=== PATIENT | male | born 1975 | race Caucasian/White ===

== ENCOUNTER 2021-06-18 10:44 | Emergency (ER) | payer SELFPAY ==
[~2021-06-18] VITALS: Ht 182 cm; Wt 75.0 kg
[2021-06-18] MEDS ORDERED: MILK OF MAGNESIA 400 MG/5 ML 30 ML UDC PO STA (11:28)
[2021-06-18] MEDS ORDERED: BISACODYL 10 MG SUPP (DULCOLAX) PR STA (11:28)
--- NOTE | 2021-06-18 11:50 | ED GI ---
General Chief Complaint: Abdominal/GI Problems Stated Complaint: CONSTIPATION Nursing Triage Note: AMB TO ROOM WITH C/O NO BM FOR 14 DAYS HAS HAD CRMPIMG WITH. TOOK LAXTIVE LAST NIGHT. WITH NO RESULTS. (PUJA MINOR) History of Present Illness Date Seen by Provider: Jun 18, 2021 Time Seen by Provider: 11:05 Initial Comments 45-year-old male presents for constipation. He is uncertain when the last time he had a full bowel movement is, he is guessing about 14 days. He does report taking 3 laxatives orally yesterday and having liquid stool approximately 2 hours later. He has no history of abdominal problems, he has had an appendectomy no other abdominal surgeries. He denies n/v/d and is passing flatus. He has been eating and drinking. No PCP. Denies abdominal pain. Timing/Duration: 1 Week Associated Symptoms: Denies Symptoms (PUJA MINOR) Allergies and Home Medications Allergies Coded Allergies: No Known Drug Allergies (Unverified , 06/18/21) Patient Home Medication List Home Medication List Reviewed: Yes (PUJA MINOR) Review of Systems Review of Systems Constitutional: no symptoms reported, see HPI Gastrointestinal: See HPI; Denies Abdominal Pain; Constipated; Denies Diarrhea, Denies Nausea, Denies Poor Appetite, Denies Poor Fluid Intake, Denies Rectal Bleeding, Denies Vomiting (PUJA MINOR) All Other Systems Reviewed Negative Unless Noted: Yes (PUJA MINOR) Past Cblxtth-Avjgmi-Zgspvx Hx Patient Social History Tobacco Use?: Yes Substance use?: No Alcohol Use?: Yes Alcohol Frequency: Rarely (PUJA MINOR) Family Medical History Reviewed Nursing Family Hx (PUJA MINOR) Physical Exam Vital Signs Vital Signs - First Documented 06/18/21 10:50 Temp 36.9 Pulse 97 Resp 18 B/P (MAP) 128/92 (104) Pulse Ox 98 O2 Delivery Room Air (JAZLYN OJEDA MD) Vital Signs Capillary Refill : Less Than 3 Seconds (PUJA MINOR) Height/Weight/BMI Height: '" Weight: lbs. oz. kg; 22.00 BMI Method: General Appearance: WD/WN, no apparent distress Neck: non-tender, full range of motion, supple, normal inspection Respiratory: chest non-tender, lungs clear, normal breath sounds Cardiovascular: normal peripheral pulses, regular rate, rhythm Gastrointestinal: normal bowel sounds, non tender, soft; No distended, No guarding, No rebound, No tenderness, No mass Extremities: normal range of motion, non-tender, normal inspection, no pedal edema Back: normal inspection, no CVA tenderness, no vertebral tenderness Neurologic/Psychiatric: no motor/sensory deficits, alert, normal mood/affect, oriented x 3 (PUJA MINOR) Progress/Results/Core Measures Results/Orders Vital Signs/I&O 06/18/21 06/18/21 10:50 12:26 Temp 36.9 36.9 Pulse 97 97 Resp 18 18 B/P (MAP) 128/92 (104) 128/92 Pulse Ox 98 98 O2 Delivery Room Air Room Air (JAZLYN OJEDA MD) Blood Pressure Mean: 104 Progress Progress Note : Time: 11:05 Progress Note Patient seen and evaluated, will give suppository and milk of magnesia. If no results will proceed with CT of abdomen. 1200 patient passed small, soft stool. No abdominal pain. Discharge instructions and return precautions reviewed. (PUJA MINOR) Departure Impression Primary Impression: Constipation Qualified Codes: K59.00 - Constipation, unspecified Disposition: HOME, SELF-CARE Condition: Improved Departure-Patient Inst. Decision time for Depature: 12:00 (PUJA MINOR) [facility]errals: [facility],LOCAL PHYSICIAN (PCP) Primary Care Physician Patient Instructions: Constipation, Adult (DC) Add. Discharge Instructions: Use MiraLAX, 2 capfuls daily for the next 3 to 4 days and then you can do 1 capful when having bowel movements regularly. If you do not pass stool by afternoon, use a Fleets Enema this evening. Use a stool softener, [id number] as you need. Increase water intake, 16 ounces every 2 hours while awake. Walk for 10 to 15 minutes 2-3 times daily. Establish care with a primary care provider. Return to the emergency department for new, urgent healthcare needs. All discharge instructions reviewed with patient and/or family. Voiced understanding. ATTENDING PHYSICIAN NOTE: I was physically present as attending physician in the emergency department during the care of this patient, but I was not directly involved in the decision making or delivery of care for this patient. (JAZLYN OJEDA MD) PUJA MINOR Jun 18, 2021 11:50 JAZLYN OJEDA MD Jun 18, 2021 15:17
[2021-06-18 12:26] VITALS: BP 128/92
== END 2021-06-18 12:26 | disposition home or self-care (01) ==
LOC: ER 10:46
DX: K59.00 Constipation, unspecified (principal); Z72.0 Tobacco use
CPT/HCPCS: 99281

== ENCOUNTER 2022-02-10 07:02 | Emergency (ER) | payer SELFPAY ==
[~2022-02-10] VITALS: Ht 182.8 cm; Wt 70.3 kg
--- NOTE | 2022-02-10 07:17 | ED Integumentary General ---
General Chief Complaint: Foreign Body Stated Complaint: FISH HOOK IN RIGHT THUMB Source: patient Exam Limitations: no limitations History of Present Illness Date Seen by Provider: Feb 10, 2022 Time Seen by Provider: 07:02 Initial Comments Patient is a 46-year-old male who presents to the emergency room with a chief complaint of a fishhook to the volar aspect of his right thumb. This occurred this morning. They did cut the proximal end of the hook almost to the skin. Patient cannot recall his last tetanus shot. All other review of systems reviewed and negative except as stated. Timing/Duration: just prior to arrival Severity: mild Location: hands (Right thumb) Possible Cause: other (Patient) Allergies and Home Medications Allergies Coded Allergies: No Known Drug Allergies (Unverified , 06/18/21) Patient Home Medication List Home Medication List Reviewed: Yes Review of Systems Review of Systems Constitutional: see HPI Respiratory: no symptoms reported Cardiovascular: no symptoms reported Gastrointestinal: no symptoms reported Skin: other ([place] to the right thumb) All Other Systems Reviewed Negative Unless Noted: Yes Physical Exam Vital Signs Vital Signs - First Documented 02/10/22 07:13 Pulse 84 Resp 16 B/P (MAP) 129/82 (98) Pulse Ox 97 O2 Delivery Room Air Capillary Refill : General Appearance: WD/WN, no apparent distress HEENT: PERRL/EOMI Cardiovascular: regular rate, rhythm Respiratory: no respiratory distress, no accessory muscle use Extremities: normal range of motion, non-tender Neurologic/Psychiatric: alert, normal mood/affect, oriented x 3 Skin: normal color, other (proximal end of fishhook in the pad of right thumb; no bleeding. distal NVI; no tendon injury) Progress/Results/Core Measures Results/Orders My Orders Orders - MARKY LEWIS MD Lidocaine 1% Inj 20 Ml (Xylocaine 1% Inj (02/10/22 07:30) Dipht,Pertuss(Acell),Tet Adult (Boostrix (02/10/22 07:30) Hand, Right, 3 Views (02/10/22 07:24) Medications Given in ED Current Medications Medications Dose Ordered Sig/Ron Route Start Time Stop Time Status Last Admin Dose Admin Diphtheria/ Tetanus/Acell Pertussis 0.5 ml ONCE ONCE IM 02/10/22 07:30 02/10/22 07:31 DC 02/10/22 07:26 0.5 ML Lidocaine HCl 20 ml ONCE ONCE INJ 02/10/22 07:30 02/10/22 07:31 DC 02/10/22 07:33 20 ML Vital Signs/I&O 02/10/22 07:13 Pulse 84 Resp 16 B/P (MAP) 129/82 (98) Pulse Ox 97 O2 Delivery Room Air Departure Impression Primary Impression: Foreign body of right thumb Qualified Codes: S60.351A - Superficial foreign body of right thumb, initial encounter Disposition: HOME, SELF-CARE Condition: Stable Departure-Patient Inst. Decision time for Depature: 07:32 Referrals: [facility] [place],LOCAL PHYSICIAN (PCP) Primary Care Physician Add. Discharge Instructions: Keep the area of the puncture wound clean, wash with a good soap and water 2-3 times daily. Antibiotics 3 times a day for 7 days. We have updated your tetanus shot today. If you notice that the thumb starts getting red or swollen, drains pus or you develop a fever please come back to the emergency room for reevaluation. Scripts Cephalexin (Cephalexin) 500 Mg Tablet 500 MG PO TID for 7 Days, #21 TAB Prov: MARKY LEWIS MD 02/10/22 MARKY LEWIS MD Feb 10, 2022 07:17
[2022-02-10] MEDS ORDERED: LIDOCAINE 1% INJ 20 ML VIAL INJ ONE (07:30)
[2022-02-10] MEDS ORDERED: TETANUS,DIPTH,PERTUSS P/F (BOOSTRIX) 0.5 ML VIAL IM ONE (07:30)
--- NOTE | 2022-02-10 07:47 | Diagnostic Imaging Report ---
INDICATION: Penetrating injury. Evaluate for foreign body. COMPARISON: None FINDINGS: 3 radiographic views of the right hand were obtained. Linear metallic foreign body is identified within the palmar soft tissues of the thumb. There is no extension to the underlying osseous structures. Osseous structures are intact. There is no acute fracture or dislocation. Joint spaces are maintained. IMPRESSION:. Soft tissue foreign body of the right thumb. No underlying osseous involvement. Dictated by: Dictated on workstation # [id number]
[2022-02-10] MEDS ORDERED: CEPH500T PO (07:51)
[2022-02-10 08:28] VITALS: BP 129/82
== END 2022-02-10 08:28 | disposition home or self-care (01) ==
LOC: EDUNIT# 07:02 → ER 07:04
DX: S60.351A Superficial foreign body of right thumb, initial encounter (principal); Z23 Encounter for immunization; W45.8XXA Other foreign body or object entering through skin, initial encounter
CPT/HCPCS: 73130; 90715